=== PATIENT | female | born 1990 | race African-American/Black ===

== ENCOUNTER 2017-03-26 21:44 | Emergency (ER) | payer MEDICAID ==
[~2017-03-26] VITALS: Ht 162.6 cm; Wt 83.0 kg
[~2017-03-26 21:44] MED LIST: ACET-2178; HYDR-523
[2017-03-27] MEDS ORDERED: ALBUTEROL (0.083%) 2.5MG/3ML NEB HHN STA (00:13)
[2017-03-27] MEDS ORDERED: IPRATROPIUM BROMIDE (0.02%) 0.5MG/2.5ML NEB HHN STA (00:13)
[2017-03-27] MEDS ORDERED: MORPHINE SULFATE 10 MG/ML CPJ IM ONE (00:15)
[2017-03-27] MEDS ORDERED: METOCLOPRAMIDE HCL 10MG TABLET PO ONE (00:15)
[2017-03-27] MEDS ORDERED: SODIUM CHLORIDE 0.9% 1,000 ML IV ONE (00:45)
[2017-03-27] MEDS ORDERED: METOCLOPRAMIDE HCL 10MG/2ML VIAL IV ONE (00:45)
[2017-03-27] MEDS ORDERED: SUMATRIPTAN SUCCINATE 6MG/0.5ML VIAL SUBCUT ONE (00:45)
[2017-03-27 01:12] LABS: BASOPHILS % 0.3 % (0.0-2.0); EOSINOPHILS % 0.1 % (0.0-5.0); HEMATOCRIT. 34.6 % (36.0-48.0); HEMOGLOBIN. 11.1 g/dL (12.0-16.0); LYMPHOCYTES % 20.2 % (20.0-50.0); MEAN CORPUSCULAR HEMOGLOBIN 24.7 pg (28.0-32.0); MEAN CORPUSCULAR VOLUME 77.3 fL (81.0-99.0); MEAN PLATELET VOLUME 7.5 fl (7.4-10.4); MONOCYTES % 7.1 % (2.0-8.0); NEUTROPHILS % 72.3 % (40.0-76.0); PLATELET 447 x1000/uL (130-400); RED BLOOD CELL COUNT 4.48 mill/uL (4.2-5.4); RED CELL DISTRIBUTION WIDTH 14.4 % (11.6-14.6)
[2017-03-27 01:14] LABS: CHLORIDE 108 mEq/L (98-107)
[2017-03-27 01:15] LABS: CLARITY URINE CLEAR (CLEAR); COLOR URINE YELLOW (YELLOW); GLUCOSE URINE NEGATIVE (NEGATIVE); KETONES URINE TRACE (NEGATIVE); LEUKOCYTE ESTERASE URINE NEGATIVE (NEGATIVE); NITRITE URINE NEGATIVE (NEGATIVE); OCCULT BLOOD URINE 2+ (NEGATIVE); PH URINE 5.5 (4.5-8.0); PROTEIN URINE TRACE (NEGATIVE)
[2017-03-27 01:22] LABS: CARBON DIOXIDE 27 mEq/L (21-32)
[2017-03-27 02:36] LABS: *AMPHETAMINES SCREEN URINE NEGATIVE (NEGATIVE); *BARBITURATES SCREEN URINE NEGATIVE (NEGATIVE); *BENZODIAZEPINES SCREEN URINE NEGATIVE (NEGATIVE); *COCAINE SCREEN URINE NEGATIVE (NEGATIVE); METHADONE URINE SCREEN NEGATIVE (NEGATIVE); PHENCYCLIDINE URINE SCREEN NEGATIVE (NEGATIVE)
[2017-03-27 02:48] LABS: CANNABINOID URINE SCREEN PRESUMTIVE POSITIVE (NEGATIVE); OPIATES URINE SCREEN PRESUMTIVE POSITIVE (NEGATIVE)
[2017-03-27 06:20] VITALS: BP 132/74
== END 2017-03-27 06:26 | disposition home or self-care (01) ==
LOC: ER 21:44
DX: R51 Headache (principal); J45.909 Unspecified asthma, uncomplicated; M19.90 Unspecified osteoarthritis, unspecified site; K21.9 Gastro-esophageal reflux disease without esophagitis; M79.7 Fibromyalgia; F12.10 Cannabis abuse, uncomplicated; Z79.899 Other long term (current) drug therapy; Z88.6 Allergy status to analgesic agent
CPT/HCPCS: 36415; 70551; 80053; 80305; 81001; 81025; 85025; 94640; 96361; 96374; 99285; J2765; J7611; Z7610; 99284; J7030

== ENCOUNTER 2018-12-12 21:49 | Emergency (ER) | payer MEDICAID ==
[~2018-12-12] VITALS: Ht 162.6 cm; Wt 86.0 kg
[2018-12-12] MEDS ORDERED: MORPHINE SULFATE 4 MG/ML CPJ (NOT FOR IM USE) IV STA (23:48)
[2018-12-12] MEDS ORDERED: SODIUM CHLORIDE 0.9% 1,000 ML IV ONE (23:48)
[2018-12-12] MEDS ORDERED: ONDANSETRON HCL 4MG/2ML INJ IV STA (23:48)
[2018-12-13 00:33] LABS: BASOPHILS % 0.3 % (0.0-2.0); EOSINOPHILS % 2.4 % (0.0-5.0); HEMATOCRIT. 35.1 % (36.0-48.0); HEMOGLOBIN. 11.4 g/dL (12.0-16.0); LYMPHOCYTES % 27.6 % (20.0-50.0); MEAN CORPUSCULAR HEMOGLOBIN 25.3 pg (28.0-32.0); MEAN PLATELET VOLUME 7.2 fl (7.4-10.4); MONOCYTES % 9.1 % (2.0-8.0); NEUTROPHILS % 60.6 % (40.0-76.0); PLATELET 392 x1000/uL (130-400); RED BLOOD CELL COUNT 4.49 mill/uL (4.2-5.4); RED CELL DISTRIBUTION WIDTH 14.5 % (11.6-14.6)
[2018-12-13 00:35] LABS: CHLORIDE 108 mEq/L (98-107)
[2018-12-13 00:36] LABS: INR 1.1; PROTHROMBIN TIME 10.9 sec (9.1-11.1)
[2018-12-13 00:42] LABS: HCG SCREEN NEGATIVE
[2018-12-13 01:10] LABS: CLARITY URINE CLOUDY (CLEAR); COLOR URINE YELLOW (YELLOW); KETONES URINE TRACE (NEGATIVE); LEUKOCYTE ESTERASE URINE 1+ (NEGATIVE); NITRITE URINE NEGATIVE (NEGATIVE); OCCULT BLOOD URINE NEGATIVE (NEGATIVE); PH URINE 5.5 (4.5-8.0); PROTEIN URINE 1+ (NEGATIVE); SPECIFIC GRAVITY URINE 1.011 (1.005-1.030); UROBILINOGEN URINE 0.2 E.U./dL (0.2-1.0)
[2018-12-13] MEDS ORDERED: POTASSIUM CHLORIDE 20MEQ TABLET SR PO SCH (02:15)
[2018-12-13] MEDS ORDERED: ONDANSETRON HCL 4MG/2ML INJ IV ONE (02:15)
[2018-12-13 06:35] VITALS: BP 134/69
== END 2018-12-13 07:01 | disposition home or self-care (01) ==
LOC: ER 21:49
DX: R10.13 Epigastric pain (principal); R11.2 Nausea with vomiting, unspecified; R19.7 Diarrhea, unspecified
CPT/HCPCS: 36415; 74176; 76856; 80053; 81003; 81025; 83690; 84703; 85025; 85610; 96361; 96374; 96375; 96376; 99284; J2270; J2405; J7030; Z7610

== ENCOUNTER 2018-12-15 14:17 | Emergency (ER) | payer MEDICAID ==
[~2018-12-15] VITALS: Ht 162.6 cm; Wt 88.5 kg
[2018-12-15 15:13] VITALS: BP 127/86
[2018-12-15] MEDS ORDERED: zofran (15:13)
== END 2018-12-15 18:48 | disposition left against medical advice (07) ==
LOC: ER 15:28
DX: R10.9 Unspecified abdominal pain (principal); Z53.21 Procedure and treatment not carried out due to patient leaving prior to being seen by health care provider

== ENCOUNTER 2019-01-18 12:37 | Emergency (ER) | payer MEDICAID ==
[~2019-01-18] VITALS: Ht 162.6 cm; Wt 87.0 kg
[~2019-01-18 12:37] MED LIST changes: -ACET-2178; -HYDR-523; +zofran
[2019-01-18 17:30] VITALS: BP 129/93
== END 2019-01-18 16:38 | disposition home or self-care (01) ==
LOC: ER 12:37
DX: J06.9 Acute upper respiratory infection, unspecified (principal); R03.0 Elevated blood-pressure reading, without diagnosis of hypertension; F12.90 Cannabis use, unspecified, uncomplicated; Z88.6 Allergy status to analgesic agent
CPT/HCPCS: 81025; 99283

== ENCOUNTER 2019-07-13 17:05 | Emergency (ER) | payer MEDICAID ==
[~2019-07-13] VITALS: Ht 162.6 cm; Wt 89.0 kg
[2019-07-13 18:55] VITALS: BP 120/83
== END 2019-07-13 18:55 | disposition home or self-care (01) ==
LOC: ER 17:05
DX: S80.862A Insect bite (nonvenomous), left lower leg, initial encounter (principal); S80.861A Insect bite (nonvenomous), right lower leg, initial encounter; J45.909 Unspecified asthma, uncomplicated; M79.7 Fibromyalgia; W57.XXXA Bitten or stung by nonvenomous insect and other nonvenomous arthropods, initial encounter; Y93.89 Activity, other specified; Y92.89 Other specified places as the place of occurrence of the external cause; Y99.8 Other external cause status; Z88.6 Allergy status to analgesic agent
CPT/HCPCS: 99283

== ENCOUNTER 2019-10-27 13:47 | Emergency (ER) | payer MEDICAID ==
[~2019-10-27] VITALS: Ht 162.6 cm; Wt 90.0 kg
[2019-10-27] MEDS ORDERED: ACETAMINOPHEN 650MG/20.3ML UDC PO ONE (17:30)
[2019-10-27] MEDS ORDERED: SODIUM CHLORIDE 0.9% 1,000 ML IV ONE (17:30)
[2019-10-27] MEDS ORDERED: METOCLOPRAMIDE HCL 10MG/2ML VIAL IV ONE (17:30)
[2019-10-27] MEDS ORDERED: DIPHENHYDRAMINE 50MG/ML VIAL IV ONE (17:30)
[2019-10-27 18:03] LABS: BASOPHILS % 0.8 % (0.0-2.0); EOSINOPHILS % 0.9 % (0.0-5.0); HEMOGLOBIN. 11.8 g/dL (12.0-16.0); LYMPHOCYTES % 26.3 % (20.0-50.0); MEAN CORPUSCULAR HEMOGLOBIN 25.6 pg (28.0-32.0); MEAN CORPUSCULAR VOLUME 78.4 fL (81.0-99.0); MEAN PLATELET VOLUME 7.4 fl (7.4-10.4); MONOCYTES % 7.8 % (2.0-8.0); NEUTROPHILS % 64.2 % (40.0-76.0); PLATELET 462 x1000/uL (130-400); RED BLOOD CELL COUNT 4.59 mill/uL (4.2-5.4); RED CELL DISTRIBUTION WIDTH 14.4 % (11.6-14.6)
[2019-10-27 18:16] LABS: CHLORIDE 109 mEq/L (98-107)
[2019-10-27 18:22] LABS: ETHANOL BLOOD < 10 mg/dL
[2019-10-27 19:39] LABS: CLARITY URINE CLEAR (CLEAR); COLOR URINE YELLOW (YELLOW); KETONES URINE NEGATIVE (NEGATIVE); LEUKOCYTE ESTERASE URINE NEGATIVE (NEGATIVE); NITRITE URINE NEGATIVE (NEGATIVE); OCCULT BLOOD URINE 2+ (NEGATIVE); PROTEIN URINE NEGATIVE (NEGATIVE); SPECIFIC GRAVITY URINE 1.006 (1.005-1.030); UROBILINOGEN URINE 0.2 E.U./dL (0.2-1.0)
[2019-10-27 19:49] LABS: *AMPHETAMINES SCREEN URINE NEGATIVE (NEGATIVE); *BARBITURATES SCREEN URINE NEGATIVE (NEGATIVE); *BENZODIAZEPINES SCREEN URINE NEGATIVE (NEGATIVE)
[2019-10-27 19:50] LABS: *COCAINE SCREEN URINE NEGATIVE (NEGATIVE); METHADONE URINE SCREEN NEGATIVE (NEGATIVE); OPIATES URINE SCREEN NEGATIVE (NEGATIVE); PHENCYCLIDINE URINE SCREEN NEGATIVE (NEGATIVE)
[2019-10-27 19:57] LABS: CANNABINOID URINE SCREEN PRESUMTIVE POSITIVE (NEGATIVE)
[2019-10-27] MEDS ORDERED: DIAZEPAM 5 MG/ML 2ML CPJ IV ONE (22:15)
[2019-10-27 22:24] VITALS: BP 130/75
== END 2019-10-27 22:25 | disposition home or self-care (01) ==
LOC: ER 13:51
DX: R51 Headache (principal); M54.2 Cervicalgia; M54.9 Dorsalgia, unspecified; M19.90 Unspecified osteoarthritis, unspecified site; J45.909 Unspecified asthma, uncomplicated; Z88.6 Allergy status to analgesic agent
CPT/HCPCS: 36415; 70450; 80053; 80305; 80320; 81003; 81025; 85025; 96374; 96375; 99284; J1200; J2765; J3360; J7030; G0480

== ENCOUNTER 2021-07-25 23:55 | Emergency (ER) | payer MEDICAID, OTHER ==
[~2021-07-25] VITALS: Ht 165.1 cm; Wt 91.0 kg
[2021-07-26] MEDS ORDERED: GABAPENTIN 300MG CAPSULE PO ONE (01:00)
[2021-07-26] MEDS ORDERED: CAPSAICIN 0.025% CREAM 60GM TOP PRN (01:00)
[2021-07-26] MEDS ORDERED: LIDOCAINE 5% PATCH TOP SCH (01:00)
[2021-07-26 01:54] VITALS: BP 139/66
[2021-07-26] MEDS ORDERED: B50 MT (03:00)
[2021-07-26] MEDS ORDERED: MELA5TAB21 MT (03:00)
[2021-07-26 03:12] LABS: CLARITY URINE CLEAR (CLEAR); COLOR URINE YELLOW (YELLOW); KETONES URINE TRACE (NEGATIVE); LEUKOCYTE ESTERASE URINE TRACE (NEGATIVE); NITRITE URINE NEGATIVE (NEGATIVE); OCCULT BLOOD URINE 3+ (NEGATIVE); PH URINE 5.5 (4.5-8.0); PROTEIN URINE TRACE (NEGATIVE); SPECIFIC GRAVITY URINE 1.028 (1.005-1.030)
[2021-07-26] MEDS ORDERED: DIPHENHYDRAMINE 50MG CAPSULE PO ONE (03:15)
[2021-07-26 03:26] LABS: UCG SCREEN NEGATIVE
== END 2021-07-26 03:27 | disposition home or self-care (01) ==
LOC: ER 23:55
DX: M25.511 Pain in right shoulder (principal); G47.00 Insomnia, unspecified; J45.909 Unspecified asthma, uncomplicated; Z88.6 Allergy status to analgesic agent
CPT/HCPCS: 72040; 81003; 81025; 99284; Q0163

== ENCOUNTER 2022-01-07 | Emergency (ER) | payer MEDICAID, OTHER ==
[~2022-01-07] VITALS: Ht 162.6 cm; Wt 98.2 kg
[~2022-01-07] MED LIST changes: +B50 MT; +MELA5TAB21 MT
[2022-01-07] MEDS ORDERED: ONDANSETRON HCL 4MG/2ML INJ IV STA (00:29)
[2022-01-07] MEDS ORDERED: FAMOTIDINE 20MG/2ML VIAL IV ONE (00:30)
[2022-01-07] MEDS ORDERED: SODIUM CHLORIDE 0.9% 1,000 ML IV ONE (00:30)
[2022-01-07 01:30] LABS: HEMATOCRIT. 37.2 % (36.0-48.0); MEAN CORPUSCULAR HEMOGLOBIN 24.4 pg (28.0-32.0); MEAN CORPUSCULAR VOLUME 75.6 fL (81.0-99.0); MEAN PLATELET VOLUME 7.5 fl (7.4-10.4); PLATELET 479 x1000/uL (130-400); RED BLOOD CELL COUNT 4.93 mill/uL (4.2-5.4); RED CELL DISTRIBUTION WIDTH 14.9 % (11.6-14.6)
[2022-01-07 01:36] LABS: CHLORIDE 106 mEq/L (98-107)
[2022-01-07 01:41] LABS: HCG SCREEN NEGATIVE
[2022-01-07 01:45] LABS: PLATELET ESTIMATE NORMAL
[2022-01-07] MEDS ORDERED: MORPHINE SULFATE 4 MG/ML CPJ (NOT FOR IM USE) IV ONE ×2 (02:15→06:15)
[2022-01-07 02:57] LABS: CLARITY URINE CLOUDY (CLEAR); COLOR URINE DARK YELLOW (YELLOW); KETONES URINE 1+ (NEGATIVE); LEUKOCYTE ESTERASE URINE 2+ (NEGATIVE); NITRITE URINE NEGATIVE (NEGATIVE); OCCULT BLOOD URINE NEGATIVE (NEGATIVE); PH URINE 5.5 (4.5-8.0); PROTEIN URINE 1+ (NEGATIVE); SPECIFIC GRAVITY URINE 1.038 (1.005-1.030)
[2022-01-07] MEDS ORDERED: ONDA4TAB5 MT (06:05)
[2022-01-07] MEDS ORDERED: CEPH500T MT (06:05)
[2022-01-07] MEDS ORDERED: METOCLOPRAMIDE HCL 10MG/2ML VIAL IV ONE (06:15)
[2022-01-07 06:19] VITALS: BP 130/71
== END 2022-01-07 06:39 | disposition home or self-care (01) ==
LOC: ER
DX: N39.0 Urinary tract infection, site not specified (principal)
CPT/HCPCS: 36415; 71045; 74176; 80053; 81003; 81025; 83690; 84703; 85025; 96361; 96374; 96375; 99285; J2270; J2405; J2765; J3490; J7030

== ENCOUNTER 2022-03-26 22:46 | Emergency (ER) | payer MEDICAID, OTHER ==
[~2022-03-26] VITALS: Ht 162.6 cm; Wt 97.5 kg
[~2022-03-26 22:46] MED LIST changes: +CEPH500T MT; +ONDA4TAB5 MT
[2022-03-27] MEDS ORDERED: ACETAMINOPHEN WITH CODEINE 300/30MG TABLET PO ONE (02:00)
[2022-03-27] MEDS ORDERED: T3 PO (02:35)
[2022-03-27 02:41] VITALS: BP 140/84
[2022-03-27] MEDS ORDERED: FAMOTIDINE 20MG TABLET PO ONE (02:45)
== END 2022-03-27 03:12 | disposition home or self-care (01) ==
LOC: ER 22:46
DX: S60.222A Contusion of left hand, initial encounter (principal); S60.212A Contusion of left wrist, initial encounter; W22.8XXA Striking against or struck by other objects, initial encounter; R03.0 Elevated blood-pressure reading, without diagnosis of hypertension; Y93.89 Activity, other specified; R47.01 Aphasia; G40.909 Epilepsy, unspecified, not intractable, without status epilepticus; Y92.488 Other paved roadways as the place of occurrence of the external cause
CPT/HCPCS: 29125; 73110; 73130; 99284

== ENCOUNTER 2022-04-04 23:11 | Emergency (ER) | payer MEDICAID, OTHER ==
[~2022-04-04] VITALS: Ht 162.6 cm; Wt 100.4 kg
[~2022-04-04 23:11] MED LIST changes: +T3 PO
[2022-04-04] MEDS ORDERED: ACETAMINOPHEN WITH CODEINE 300/30MG TABLET PO ONE (23:45)
[2022-04-05 00:05] VITALS: BP 141/87
== END 2022-04-05 01:12 | disposition home or self-care (01) ==
LOC: ER 23:23
DX: M25.532 Pain in left wrist (principal); M79.642 Pain in left hand; R20.2 Paresthesia of skin; G40.909 Epilepsy, unspecified, not intractable, without status epilepticus
CPT/HCPCS: 99282; 99283

== ENCOUNTER 2022-08-23 01:07 | Emergency (ER) | payer MEDICAID ==
[~2022-08-23] VITALS: Ht 162.6 cm; Wt 98.5 kg
[2022-08-23] MEDS ORDERED: HYDROCODONE/ACETAMINOPHEN 5/325MG TABLET PO ONE (04:15)
[2022-08-23] MEDS ORDERED: HYDR-4001 MT (04:25)
[2022-08-23] MEDS ORDERED: METH-653 MT (04:25)
[2022-08-23 05:02] VITALS: BP 122/77
== END 2022-08-23 04:30 | disposition home or self-care (01) ==
LOC: ER 01:46
DX: M54.2 Cervicalgia (principal); M54.89 Other dorsalgia; M25.512 Pain in left shoulder
CPT/HCPCS: 81025; 99283

== ENCOUNTER 2022-10-24 22:06 | Emergency (ER) | payer MEDICAID ==
[~2022-10-24] VITALS: Ht 162.6 cm; Wt 92.3 kg
[~2022-10-24 22:06] MED LIST changes: +HYDR-4001 MT; +METH-653 MT
[2022-10-24 22:47] VITALS: BP 141/79
[2022-10-25] MEDS ORDERED: HYDROCODONE/ACETAMINOPHEN 5/325MG TABLET PO ONE
[2022-10-25] MEDS ORDERED: HYDR-4001 MT (01:42)
== END 2022-10-25 03:26 | disposition home or self-care (01) ==
LOC: ER 22:06
DX: G50.1 Atypical facial pain (principal); R68.84 Jaw pain; G89.11 Acute pain due to trauma; X99.0XXA Assault by sharp glass, initial encounter; Y93.89 Activity, other specified; Y92.89 Other specified places as the place of occurrence of the external cause
CPT/HCPCS: 70486; 81025; 99284

== ENCOUNTER 2023-01-18 16:36 | Emergency (ER) | payer MEDICAID ==
[~2023-01-18] VITALS: Ht 165.1 cm; Wt 87.0 kg
[2023-01-18] MEDS ORDERED: MAGNESIUM/ALUMINUM HYDROXIDE/SIMETHICONE 30ML UDC PO STA (23:22)
[2023-01-18] MEDS ORDERED: ONDANSETRON 4MG ODT PO STA (23:22)
[2023-01-18] MEDS ORDERED: VISCOUS LIDOCAINE 2% 15 ML UDC PO STA (23:22)
[2023-01-18] MEDS ORDERED: ACETAMINOPHEN 325MG TABLET PO ONE (23:30)
[2023-01-19 00:40] LABS: BASOPHILS % 0.3 % (0.0-2.0); EOSINOPHILS % 0.1 % (0.0-5.0); HEMATOCRIT. 37.3 % (36.0-48.0); HEMOGLOBIN. 11.6 g/dL (12.0-16.0); LYMPHOCYTES % 13.7 % (20.0-50.0); MEAN CORPUSCULAR HEMOGLOBIN 22.9 pg (28.0-32.0); MEAN CORPUSCULAR VOLUME 73.6 fL (81.0-99.0); MEAN PLATELET VOLUME 7.4 fl (7.4-10.4); MONOCYTES % 5.9 % (2.0-8.0); PLATELET 609 x1000/uL (130-400); RED BLOOD CELL COUNT 5.07 mill/uL (4.2-5.4); RED CELL DISTRIBUTION WIDTH 16.9 % (11.6-14.6)
[2023-01-19 00:41] LABS: CHLORIDE 101 mEq/L (98-107)
[2023-01-19 01:56] LABS: CLARITY URINE TURBID (CLEAR); COLOR URINE DARK YELLOW (YELLOW); KETONES URINE 2+ (NEGATIVE); LEUKOCYTE ESTERASE URINE 1+ (NEGATIVE); NITRITE URINE NEGATIVE (NEGATIVE); OCCULT BLOOD URINE 3+ (NEGATIVE); PH URINE 5.5 (4.5-8.0); PROTEIN URINE 2+ (NEGATIVE)
[2023-01-19] MEDS ORDERED: MORPHINE SULFATE 10 MG/ML CPJ IM ONE (03:00)
[2023-01-19] MEDS ORDERED: IOHEXOL-300 100 ML BOTTLE ONE (04:27)
[2023-01-19 05:00] VITALS: BP 127/77
[2023-01-19] MEDS ORDERED: ACET-2708 MT (05:41)
[2023-01-19] MEDS ORDERED: ONDA4TAB50 MT (05:41)
[2023-01-19] MEDS ORDERED: SULF1TAB48 MT (06:06)
== END 2023-01-19 06:00 | disposition home or self-care (01) ==
LOC: ER 16:36
DX: K52.9 Noninfective gastroenteritis and colitis, unspecified (principal); R11.2 Nausea with vomiting, unspecified; R10.13 Epigastric pain
CPT/HCPCS: 36415; 74177; 80053; 81003; 83690; 85025; 96372; 99285; J2270; Q0162; Q9967; Z7610

== ENCOUNTER 2023-12-13 21:05 | Emergency (ER) | payer MEDICAID, MEDICARE ==
[~2023-12-13] VITALS: Ht 165.1 cm; Wt 96.3 kg
[~2023-12-13 21:05] MED LIST changes: +ACET-2708 MT; +ONDA4TAB50 MT; +SULF1TAB48 MT
[2023-12-13 21:07] VITALS: TEMP 98.5; O2SAT 99
[2023-12-13 21:35] LABS: BASOPHILS % 0.5 % (0.0-2.0); DIFFERENTIAL COMMENT 0; EOSINOPHILS % 1.6 % (0.0-5.0); HEMATOCRIT. 32.9 % (36.0-48.0); HEMOGLOBIN. 10.8 g/dL (12.0-16.0); LYMPHOCYTES % 29.5 % (20.0-50.0); MEAN CORPUSCULAR HEMOGLOBIN 24.6 pg (28.0-32.0); MEAN CORPUSCULAR HGB CONC 32.7 g/dL (31.0-37.0); MEAN CORPUSCULAR VOLUME 75.1 fL (81.0-99.0); MEAN PLATELET VOLUME 7.1 fl (7.4-10.4); MONOCYTES % 6.9 % (2.0-8.0); NEUTROPHILS % 61.5 % (40.0-76.0); PLATELET 449 x1000/uL (130-400); RED BLOOD CELL COUNT 4.38 mill/uL (4.2-5.4); WHITE BLOOD COUNT 9.9 x1000/uL (4.5-11.0)
[2023-12-13 21:50] LABS: ALANINE AMINOTRANSFERASE 11 IU/L (10-49); ALBUMIN 4.3 g/dL (3.2-4.8); ASPARTATE AMINOTRANSFERASE 14 IU/L (<34); BILIRUBIN TOTAL 0.3 mg/dL (0.1-1.0); CALCIUM 8.8 mg/dL (8.7-10.4); CARBON DIOXIDE 27 mEq/L (21-32); CHLORIDE 107 mEq/L (98-107); CREATININE 0.8 mg/dL (0.6-1.0); GLUCOSE 89 mg/dL (70-105); POTASSIUM 3.5 mEq/L (3.5-5.1); PROTEIN TOTAL 7.1 g/dL (6.0-8.3); SODIUM 141 mEq/L (136-145); UREA NITROGEN BLOOD 13 mg/dL (9-23)
[2023-12-13 22:08] LABS: CLARITY URINE CLEAR (CLEAR); COLOR URINE YELLOW (YELLOW); GLUCOSE URINE NEGATIVE (NEGATIVE); KETONES URINE TRACE (NEGATIVE); LEUKOCYTE ESTERASE URINE TRACE (NEGATIVE); NITRITE URINE NEGATIVE (NEGATIVE); OCCULT BLOOD URINE NEGATIVE (NEGATIVE); PH URINE 7.5 (4.5-8.0); PROTEIN URINE TRACE (NEGATIVE); SPECIFIC GRAVITY URINE 1.031 (1.005-1.030)
[2023-12-13 22:22] LABS: BACTERIA URINE NONE SEEN; RBC URINE NONE SEEN /hpf (0-2); SQUAMOUS EPITHELIAL CELL URINE RARE /lpf (RARE/1+); WBC URINE 0-2 /hpf (0-2)
[2023-12-14] MEDS: HYDROCODONE/ACETAMINOPHEN 5/325MG TABLET PO ONE ×2 (00:38→03:26)
[2023-12-14] MEDS ORDERED: TOPUD MT (03:00)
[2023-12-14 03:26] VITALS: BP 145/89; PULSE 65; RESP 16
== END 2023-12-14 03:27 | disposition home or self-care (01) ==
LOC: ER 21:05
DX: N83.202 Unspecified ovarian cyst, left side (principal); K21.9 Gastro-esophageal reflux disease without esophagitis; G40.909 Epilepsy, unspecified, not intractable, without status epilepticus; M79.7 Fibromyalgia; Z98.890 Other specified postprocedural states; Z90.89 Acquired absence of other organs; Z88.2 Allergy status to sulfonamides
CPT/HCPCS: 36415; 76856; 80053; 81003; 81025; 85025; 93971; 99284